=== PATIENT | female | born 1940 | race Caucasian/White ===

== ENCOUNTER 2021-12-28 02:11 | Emergency (ER) | payer OTHER, MEDICAID ==
[~2021-12-28] VITALS: Ht 152.4 cm; Wt 61.2 kg
[2021-12-28 02:29] VITALS: BP_SYST 137
[2021-12-28] MEDS ORDERED: NACL 0.9% 1,000 ML IV ONE (02:30)
[2021-12-28] MEDS ORDERED: PROCHLORPERAZINE EDISYLATE 10 MG/2 ML VIAL IVP ONE (02:30)
[2021-12-28] MEDS ORDERED: MORPHINE 4 MG INJ. 4 MG/ML VIAL IVP ONE (02:30)
--- NOTE | 2021-12-28 02:30 | NUR ---
Pt to bed 5 via EMS w/ c/o of generalized abdominal pain and ARREOLA. Pt had recent Dx of cholelithiasis. Normal skin color for ethnicity. Respirations even and unlabored. Pt occasionally yells during triage when asked about her pain. Pt placed on alarm security or surveillance monitor. bed in low position. Side rails up.
[2021-12-28 02:52] LABS: BASOPHILS % (AUTO) 0.1 % (0.0-2.0); EOSINOPHILS % (AUTO) 0.2 % (0.0-4.0); HEMATOCRIT 41.5 % (36-48); HEMOGLOBIN 13.9 g/dL (12.0-16.0); LYMPHOCYTES # (AUTO) 1.3 K/uL (1.0-5.5); LYMPHOCYTES % (AUTO) 8.8 % (20.5-51.5); MEAN CORPUSCULAR HEMOGLOBIN 28 pg (27-31); MEAN CORPUSCULAR HGB CONC 34 % (32-36); MEAN CORPUSCULAR VOLUME 83 fL (79.0-98.0); MONOCYTES # (AUTO) 1.3 K/uL (0.0-1.0); NEUTROPHILS # (AUTO) 12.2 K/uL (1.8-7.7); NEUTROPHILS % (AUTO) 81.9 % (40.0-70.0); PLATELET COUNT (AUTO) 220 K/uL (130-430); RED BLOOD CELL COUNT(AUTO) 4.99 MIL/uL (4.2-6.2); RED CELL DISTRIBUTION WIDTH 19.6 % (9.0-15.0)
--- NOTE | 2021-12-28 02:59 | NUR ---
# 20 gauge angiocath placed to . Use of asceptic technique. Opsite placed over site. Blood return noted. Blood for lab drawn from site. Flushed with 10 cc of normal saline. No evidence of infiltration noted. Patient tolerated well.
[2021-12-28 03:17] LABS: ANION GAP 14 (5-15); CALCIUM 8.7 mg/dL (8.4-11.0); CHLORIDE 94 mmol/L (98-107); CREATININE 0.54 mg/dL (0.55-1.30); GLUCOSE 118 mg/dL (70-99); POTASSIUM 4.1 mmol/L (3.5-5.1); SODIUM SERUM 131 mmol/L (136-145); UREA NITROGEN, BLOOD 20 mg/dL (8-21)
[2021-12-28 03:21] LABS: ALANINE AMINOTRANSFERASE 34 U/L (12-78); ASPARTATE AMINOTRANSFERASE 29 U/L (10-37); LIPASE 113 U/L (73-393); TOTAL BILIRUBIN 1.5 mg/dL (0.0-1.0)
--- NOTE | 2021-12-28 04:30 | NUR ---
Attempted in and out parry. It was met with slight resistance. Dr. Rodriguez made aware and approved to try again.
[2021-12-28 04:33] LABS: BILIRUBIN,URINE NEGATIVE (NEGATIVE); BLOOD, URINE 3+ (NEGATIVE); CLARITY/URINE CLEAR (CLEAR); COLOR,URINE YELLOW (YELLOW); GLUCOSE,URINE NEGATIVE (NEGATIVE); KETONES,URINE TRACE (NEGATIVE); LEUKOCYTE ESTERASE ,URINE NEGATIVE (NEGATIVE); NITRITE, URINE NEGATIVE (NEGATIVE); PROTEIN URINE 2+ (NEGATIVE); UROBILINOGEN,URINE 0.2 (0.2-1.0)
[2021-12-28 04:43] LABS: BACTERIA,URINE RARE /HPF (None Seen); RBC,URINE >100 /HPF (0-3); WBC,URINE 0-3 /HPF (0-3)
--- NOTE | 2021-12-28 04:49 | NUR ---
In and out parry used to collect urine. Pt tolerated well. Now resting in bed with eyes closed. Safety precautions in place and connected to monitor.
[2021-12-28] MEDS ORDERED: REGL10 PO (05:40)
--- NOTE | 2021-12-28 06:38 | NUR ---
Pt resting in bed with eyes closed. VSS. Safety precautions in place and connected to monitor.
--- NOTE | 2021-12-28 07:35 | NUR ---
Report given to Marcus HERNANDES to assume care.
--- NOTE | 2021-12-28 07:45 | NUR ---
RECEIVED PT , SLEEPING. PT WILL RETURN TO HER FACILITY PER MD. PT IS STABLE AND NO DISTRESS OR DISCOMFORT NOTED.
--- NOTE | 2021-12-28 09:06 | NUR ---
TRANSPORT ARRANGED BY HECTOR. LÓPEZ A COUPLE OF HOURS.
--- NOTE | 2021-12-28 13:24 | NUR ---
2PM MARIBEL VOGEL SAYS NOW.
--- NOTE | 2021-12-28 13:27 | NUR ---
PT CONTINUES TO BE STABLE, NO S/S OF DISCOMFORT. AWAITING TRANSPORT BACK TO SNF.
--- NOTE | 2021-12-28 15:38 | NUR ---
Patient given written and verbal discharge instructions and verbalizes understanding. ER MD discussed with patient the results and treatment provided. Patient in stable condition. ID arm band removed. IV catheter removed intact and dressing applied, NO BLEEDING. Patient educated on pain management and to follow up with PMD. Pain Scale 0/10. Opportunity for questions provided and answered. Medication side effect fact sheet provided.
[2021-12-28 15:39] VITALS: BP_SYST 110
== END 2021-12-28 15:39 | disposition home or self-care (01) ==
LOC: SED 02:11
DX: R10.84 Generalized abdominal pain (principal); E11.9 Type 2 diabetes mellitus without complications; I10 Essential (primary) hypertension; Z87.311 Personal history of (healed) other pathological fracture
CPT/HCPCS: 36415; 71045; 76705; 80053; 81000; 83690; 85025; 96374; 96375; 99285; J0780; J2270